=== PATIENT | female | born 1985 | race Caucasian/White ===

== ENCOUNTER 2025-01-20 08:30 | Outpatient (CLI) | payer MEDICAID, SELFPAY ==
[2025-01-20 16:20] LABS: Chlamydia DNA Amplified* NOT DETECTED (No Detected); GC DNA Amplified* NOT DETECTED (No Detected)
[2025-01-21 22:38] LABS: HPV Source Vaginal; HPV, High Risk by TMA Not Detected
== END 2025-01-20 08:31 | disposition home or self-care (01) ==
PROVIDERS: PCP Physician Assistant Medical; Visit Provider Physician Assistant Medical
DX: R10.2 Pelvic and perineal pain (principal); N92.0 Excessive and frequent menstruation with regular cycle; Z13.0 Encounter for screening for diseases of the blood and blood-forming organs and certain disorders involving the immune mechanism; Z13.6 Encounter for screening for cardiovascular disorders; Z11.3 Encounter for screening for infections with a predominantly sexual mode of transmission; Z13.1 Encounter for screening for diabetes mellitus
CPT/HCPCS: 80048; 80061; 84443; 86703; 86803; 87491; 87591; 87624; 87625; 88141; 88142

== ENCOUNTER 2025-02-07 14:42 | Outpatient (CLI) | payer MEDICAID, SELFPAY | END 2025-02-07 14:43 | disposition home or self-care (01) | PROVIDERS: PCP Physician Assistant Medical; Visit Provider Physician Assistant Medical | DX: R10.2 Pelvic and perineal pain (principal); D25.1 Intramural leiomyoma of uterus; R93.89 Abnormal findings on diagnostic imaging of other specified body structures; N83.201 Unspecified ovarian cyst, right side; N92.0 Excessive and frequent menstruation with regular cycle | CPT/HCPCS: 76830; 76856; 93976 ==

== ENCOUNTER 2025-02-16 10:50 | Outpatient (CLI) | payer MEDICAID, SELFPAY | END 2025-02-16 10:51 | disposition home or self-care (01) | LOC: NFLDREF 10:52 | PROVIDERS: PCP Physician Assistant Medical; Visit Provider Obstetrics & Gynecology | DX: N92.0 Excessive and frequent menstruation with regular cycle (principal) | CPT/HCPCS: 84443 ==

== ENCOUNTER 2025-03-24 13:45 | Outpatient (CLI) | payer MEDICAID, SELFPAY ==
--- NOTE | 2025-03-24 14:00 | CRLHL7_ITS ---
For Patients: As a result of the Century Cures Act, medical imaging exams and procedure reports are released immediately into your electronic medical record. You may view this report before your referring provider. If you have questions, please contact your health care provider. INDICATION: History of other diseases of female COMPARISON: 02/07/2025 TECHNIQUE: 2D hernandez scale and color Doppler images were acquired of the pelvis using a transabdominal and transvaginal approach. FINDINGS: Sonographic images demonstrate a normal size and smooth outer contour of the uterus. Uterus measures 9.4 cm in length by 4.7 cm in AP diameter by 5.4 cm in transverse dimension. Fundal fibroid is present which measures 1.5 x 1.4 x 1.6 cm, previously measuring 1.5 x 1.8 x 1.5 cm. This abuts the fundal endometrial stripe. Additional posterior intramural fibroid measures 1.8 x 0.9 x 1.5 cm. The endometrial lining appears normal and measures 7 mm in composite thickness. The right ovary measures 3.3 x 1.6 x 1.9 cm in size and the left ovary measures 3.7 x 2.1 x 2.9 cm. The ovaries demonstrate normal arterial and venous blood flow on color Doppler analysis. There are no suspicious fluid collections within the cul-de-sac. IMPRESSION: Similar fundal fibroid adjacent to the fundal endometrial stripe which measures 1.6 cm. Posterior intramural fibroid measures 1.8 cm. Endometrium measures 7 millimeters. No suspicious ovarian lesion. Dictated by Claudio Poole MD @ 03/24/2025 4:08:04 PM (Electronically Signed)
== END 2025-03-24 13:46 | disposition home or self-care (01) ==
LOC: US 13:46
PROVIDERS: PCP Physician Assistant Medical; Visit Provider Obstetrics & Gynecology
DX: Z87.42 Personal history of other diseases of the female genital tract (principal); D25.1 Intramural leiomyoma of uterus; R93.89 Abnormal findings on diagnostic imaging of other specified body structures
CPT/HCPCS: 76830; 76856

== ENCOUNTER 2025-03-30 08:32 | Day surgery (SDC) | payer MEDICAID, SELFPAY ==
[2025-03-30] VITALS (23 sets, daily range): BP systolic 99–127; BP diastolic 50–83; PULSE 52–98; RESP 14–20; TEMP 35.6–37.1; O2SAT 96–100; BMI 22.6
[2025-03-30] MEDS: SODIUM CHLORIDE 0.9 % (FLUSH) 10 ML SYRINGE IVF ×2 (09:30→19:37)
[2025-03-30] MEDS: LACTATED RINGERS 1000 ML 1,000 ML 100 ML IV ×2 (09:30→11:48)
[2025-03-30 09:37] LABS: Hemoglobin* 12.8 gm/dL (12.0-16.0)
[2025-03-30 09:40] LABS: Ur HCG Qualitative* Negative (Negative)
[2025-03-30 09:51] LABS: Creatinine* 0.6 mg/dL (0.5-1.5); Estimated Glomerular Filt Rate 118 ml/min
--- NOTE | 2025-03-30 10:05 | W.PM.H&PU ---
History & Physical Update History & Physical Update H&P Reviewed and patient assessed: No changes noted
[2025-03-30] MEDS: ACETAMINOPHEN 500 MG TABLET 1000 MG PO ×2 (10:10→15:49)
[2025-03-30] MEDS: GABAPENTIN 600 MG TABLET PO (10:10)
[2025-03-30] MEDS: SCOPOLAMINE 1 MG/3 DAY PATCH 1 PATCH TRANSDERMA (10:10)
[2025-03-30] MEDS: CEFAZOLIN 2 GM INJ IVP (10:46)
--- NOTE | 2025-03-30 12:34 | W.PM.GYNPROC ---
Procedure Note Date of procedure: 03/30/25 Will [facility] bill your pro fee for this procedure?: Yes Pre-op diagnosis: Abnormal uterine bleeding- leiomyoma, possible adenomyosis, chronic pelvic pain Post-op diagnosis: Same Procedure: Total laparoscopic hysterectomy, bilateral salpingectomy, cystoscopy Anesthesia: GETA Complications: None Surgeon: Raymundo Dwyer MD Animal Therapist: Leticia Porras Estimated blood loss (mL): 50 IV fluids (mL): 1,500 Urine Output (mL): 600 Pathology: specimen obtained, sent to pathology (Uterus and cervix, bilateral fallopian tubes) Condition: stable Disposition: floor Findings: Normal external genitalia, speculum exam: large cervix w/o gross lesions or abnormal discharge. Intra abdominal: Grossly normal liver, stomach, intestines. Pelvis: Uterus midline of about 10cm, posterior subserosal fibroids small- of about 1-2 cm. Grossly normal bilateral fallopian tubes and ovaries. No evidence of pelvic adhesions, grossly noticeable endometriosis implants. Cystoscopy: air bubbles noted, mucosa intact w/o foreign material-suture or lesions. Bilateral ureteral jets noted. Procedure Description: DESCRIPTION OF PROCEDURE: After obtaining informed consent, the patient was taken to the operating room where general anesthesia was obtained without difficulty. She was prepared and draped in the normal sterile fashion in the low dorsal lithotomy position. A Garcia catheter was inserted into the bladder and left to drain by gravity. A medium Graves open-sided speculum was introduced into the vagina. The cervix was visualized and grasped along its anterior lip with a single-tooth tenaculum. The uterus was gently sounded. Sound length was found to be 9 cm. Cervical dilation completed with Hegar dilators. I then placed an extra large VCare uterine manipulator. The tenaculum and speculum were removed. The green VCare cup was digitally pressed up against the cervix and then cinched in place with the blue accessory cup. I then changed gloves and my attention was turned to the abdomen. The inferior aspect of the umbilical fold was grasped with 2 Allis clamps. A 5 mm vertical incision was then made within the umbilical fold using a scalpel. A direct entry technique was used, a 5 mm laparoscopic port with CO2 gas set at 5mmHg was introduced under direct visualization. The trocar was removed leaving the sleeve in place. The CO2 gas flow was turned to high flow to achieve pneumoperitoneum. The 5 mm laparoscope was used then to carefully inspect the abdomen and pelvis with findings noted above. Pictures were taken for documentation purposes. The patient was placed in Trendelenburg positioning. Two additional 5mm ports were placed in the right and left lower quadrants under direct visualization. An additional 5mm port was placed on the abdomen at the level of the umbilicus to the left of umbilicus, about 5-6 cm lateral from umbilicus under direct visualization. Once the ports were in place, the VCare manipulator was used to elevate the uterus. The VCare cup was visualized and palpated with a blunt grasper. The left tube was elevated with a graspers. The LigaSure device was used to dissect the tube from it's ovarian and broad ligament and cornual attachments before removing the tube through a lower port. Excellent hemostasis was obtained. The left utero-ovarian ligament was then sealed and transected in a wide swath with the LigaSure device. Hemostasis secured. The left round ligament was then sealed in a wide swath and transected with the LigaSure, excellent hemostasis was obtained. The broad ligament was then opened using the LigaSure anteriorly and posteriorly along the cervix from the left within the confines of the VCare cup. Pressure was maintained on the uterine manipulator the whole time. The left uterine vessels were sealed in a wide swath and transected with the LigaSure, then the tissues over the VCare cup edge on the left side were thinned using the LigaSure to the midline posteriorly and anteriorly so that the fascial layer could be identified. The right tube was elevated with a graspers. The LigaSure device was used to dissect the tube from it's ovarian and broad ligament and cornual attachments before removing the tube through a lower port. Excellent hemostasis was obtained. The right utero-ovarian ligament sealed and transected in a wide swath with the LigaSure device. Hemostasis secured. The right round ligament was then sealed in a wide swath and transected with the LigaSure, excellent hemostasis was obtained. The broad ligament was then opened using the LigaSure anteriorly and posteriorly along the cervix from the right within the confines of the VCare cup. Pressure was maintained on the uterine manipulator the whole time. The right uterine vessels were sealed in a wide swath and transected with the LigaSure, then the tissues over the VCare cup edge on the right side were thinned using the LigaSure to the midline posteriorly and anteriorly so that the fascial layer could be identified. Once an adequate dissection was made circumferentially, monopolar laparoscopic spatula was utilized to dissect until identification of the green Vcare cup, tissue dissected circumferentially around the cervix within the groove of the VCare cup. Once the dissection was completed circumferentially, from the vagina the uterine manipulator and the uterus were removed. Uterus was left in vagina to aid in maintenance of pneumoperitoneum. The vaginal cuff was reapproximated in a running fashion with a V-Loc suture starting from the right side and running across to the left and then back to the midline where the suture was cut flush with the tissues. The pelvis was copiously irrigated and hemostasis visualized. Preparations were then made for cystoscopy. Fluorescein was administered intravenously along with the IV fluids. The Garcia catheter was removed. The patient was flattened out. Cystoscopy was performed using sterile normal saline as distending medium. The bladder was carefully inspected and noted to be free of filling defects or suture material. Both ureteral orifices were easily visualized and fluorescein tinged urine jets were noted from both sides. The cystoscope was then removed. The Garcia catheter was replaced into the bladder. Speculum evaluation of the vaginal cuff was completed at this moment, showing adequate closure and no evidence of bleeding of escape of pneumoperitoneum. Attention was once again turned to the abdomen. The abdomen and pelvis were again irrigated and inspected for hemostasis. Andres was placed over excision sites to further secure hemostasis. All instruments were then removed under direct visualization. Pneumoperitoneum was allowed to escape. The skin at all port sites was closed in a subcuticular fashion with 4-0 Monocryl. LiquiBand was then placed over the incisions. The patient tolerated the procedure well. Sponge, lap, needle, and instrument counts were reported as correct x2. The patient was taken to the recovery room awake and in stable condition. She did receive Ancef 2g preoperatively as infection prophylaxis. PATHOLOGY SPECIMEN(S): Uterus, cervix and bilateral fallopian tubes. Uterine weight: 146g.
--- NOTE | 2025-03-30 12:55 | P.NB_ITS ---
Nerve Block Nerve Block Time Seen by Provider: 10:35 Date Seen: 03/30/25 Type of block requested by surgeon for post-operative analgesia: TAP Time out performed: Yes Verification of patient name: Yes Verification of date of : Yes Site marking: site marked Name of person performing procedure: Aaron Continuous monitoring Was continuous monitoring of O2 sat, B/P, monitoring analyst, recorded every 15 minutes?: Yes Procedure Checklist: sterile prep, needles and gloves Ultrasound guided. Images saved: Yes Medications given in 5ml increments after negative aspiration: Marcaine %: 0.25 mL: 30 Needle gauge: 20 and Exparel mL: 10 Patient tolerated procedure well: Yes Additional comments: Needle noted between internal oblique and transversus abdominus. Local spread visualized Block Charges Block Charge (with Pro Fee): TAP Bilateral Use of Ultrasound Machine for Block: Yes- US Guidance/pain block
--- NOTE | 2025-03-30 12:55 | P.ANES_ITS ---
Anesthesia Charges Start Date/Time Anesthesia Start Date: 03/30/25 Anesthesia Start Time: 10:36 Stop Date/Time Anesthesia Stop Date: 03/30/25 Anesthesia Stop Time: 12:45 Coding CPT Codes CPT Codes: ANESTH SURG LOWER ABDOMEN - 34650 ([id number]) P2 - PATIENT W/MILD SYST DISEASE, QK - MEDICAL SPECIALIST 2-4 CNCRNT ANES PROC, QX - CHIEF DESIGN DRAFTER SVC W/ MD MED DIRECTION
--- NOTE | 2025-03-30 12:55 | W.ANESCHARGE ---
Anesthesia Charges Start Date/Time Anesthesia Start Date: 03/30/25 Anesthesia Start Time: 10:36 Stop Date/Time Anesthesia Stop Date: 03/30/25 Anesthesia Stop Time: 12:45 Coding CPT Codes CPT Codes: ANESTH SURG LOWER ABDOMEN - 84769 ([id number]) P2 - PATIENT W/MILD SYST DISEASE, QK - UNDERWRITING SALES REPRESENTATIVE 2-4 CNCRNT ANES PROC, QX - PROFESSOR IN FAMILY STUDIES SVC W/ MD MED DIRECTION
[2025-03-30] MEDS: fentaNYL 100 MCG/2 ML inj 50 MCG IVP (13:00)
[2025-03-30] MEDS: HYDROmorphone 0.5 mg/0.5 ml inj IVP (13:08)
[2025-03-30] MEDS: OXYCODONE 5 MG TABLET PO ×2 (13:41→17:50)
[2025-03-30] MEDS: KETOROLAC 30 MG/ML inj IVP (19:37)
[2025-03-30] MEDS: SIMETHICONE 80 MG TAB.CHEW 160 MG PO (19:38)
[2025-03-31] MEDS: KETOROLAC 30 MG/ML inj IVP (01:25)
[2025-03-31 03:34] VITALS: BP 96/60; PULSE 67; RESP 16; TEMP 36.9; O2SAT 97
[2025-03-31 06:46] LABS: Hemoglobin* 10.5 gm/dL (12.0-16.0)
--- NOTE | 2025-03-31 06:48 | PC.NURSE ---
Catheter was removed at 2300 on 03/30. Pt was able to get out of bed and walk in the [place] with only reports of feeling like she had a few drinks. She has since been able to get out of bed and move around room independently. She said she attempted to void but was only able to pee a few drops and reported it burned. Bladder scan done and results were from 71-92 mls. Will update MD for further orders.
[2025-03-31 06:59] LABS: Creatinine* 0.7 mg/dL (0.5-1.5); Est. Creatinine Clearance* 98.05; Estimated Glomerular Filt Rate 113 ml/min
[2025-03-31] MEDS: IBUPROFEN 600 MG TABLET PO ×2 (07:16→13:39)
[2025-03-31] MEDS: SENNOSIDES/DOCUSATE TABLET 1 TAB PO (08:28)
[2025-03-31] MEDS: polyethylene glycoL 3350 17 GM PACK PO (08:28)
[2025-03-31 08:34] VITALS: BP 103/67; PULSE 63; RESP 16; TEMP 36.9; O2SAT 98
--- NOTE | 2025-03-31 13:48 | P.DS_ITS ---
DS: Providers Provider Time Seen by Provider: 13:48 Date Seen: 03/31/25 Primary care physician: Concha Daily PA-C Attending Physician on discharge: Kristen Dwyer MD Date of Discharge: 03/31/25 DS: Diagnosis Discharge Diagnosis (1) History of ovarian cyst: Status: Acute (2) History of depression: Status: Acute (3) History of anxiety: Status: Acute (4) Chronic constipation: Status: Acute Problem details: Previously consulted with GI (5) Pelvic pain: Status: Acute (6) Menorrhagia: Status: Acute (7) S/P hysterectomy: Status: Acute Problem details: TLH + BS on 03/30/25 CERTIFIED CAREGIVER-Discharge Summary Hospital Course Hospital Course Narrative: Patient is a 39 year old admitted on 03/30/25 for schedule surgery. Total laparoscopic hysterectomy, bilateral salpingectomy, cystoscopy Indication for surgery: Abnormal uterine bleeding- leiomyoma, possible adenomyosis, chronic pelvic pain Intraoperative findings: Normal external genitalia, speculum exam: large cervix w/o gross lesions or abnormal discharge. Intra abdominal: Grossly normal liver, stomach, intestines. Pelvis: Uterus midline of about 10cm, posterior subserosal fibroids small- of about 1-2 cm. Grossly normal bilateral fallopian tubes and ovaries. No evidence of pelvic adhesions, grossly noticeable endometriosis implants. Cystoscopy: air bubbles noted, mucosa intact w/o foreign material-suture or lesions. Bilateral ureteral jets noted. She had an uncomplicated surgery. Postoperative course has been uneventful. Vitals have been stable. She has remained afebrile. Today, on postoperative day 1, she reports the pain is well controlled. She has been able to ambulate Without difficulty. She is tolerating regular diet. She is passing flatus. Garcia catheter has been removed, and she is voiding without difficulty. Notably, she has chronic constipation. This has been extensively worked up by GI. However, no cause has been elucidated. Has last BM was Friday. She's has a BM every 3-4 days. Given that she is passing gas, ok to discharge. However, we reviewed bowel regimen extensively, especially since oxycodone can be constipating. She has miralax and docusate, and senna at home. Reviewed importance of bowel movement. I can cause abdominal pain and worsen postoperative pain. Patient knows to call the clinic if she has any concern. Time Spent with Patient Time attestation: Total time spent providing and/or coordinating discharge services: Time spent: Less than 30 minutes CERTIFIED CAREGIVER - Exam Physical Exam: Vital signs: Temp Pulse Resp BP Pulse Ox O2 Del Method O2 Flow Rate 98.5 F 63 16 103/67 98 Room Air 2 03/31/25 08:34 03/31/25 08:34 03/31/25 08:34 03/31/25 08:34 03/31/25 08:34 03/31/25 03:34 03/30/25 12:45 FiO2 100 03/30/25 12:45 Narrative: Physical exam: General: No acute distress Psych: Alert and oriented x4, full affect HEENT: Normocephalic, atraumatic Heart: Regular rate and rhythm, no murmur rub or gallop Lungs: Clear to auscultation bilaterally Abdomen: Normoactive bowel sounds, soft, no tenderness, rebound, or guarding Incision(s): Appropriately tender to palpation. Clean, dry, and intact. No erythema, induration, or abnormal discharge/breakdown Skin: No lesions or rashes Lower extremities: No edema or erythema Pelvic exam: Scant bleeding on pad CERTIFIED CAREGIVER - DS: Data Data Completed and Pending Labs on day of discharge: Labs from last 24 hours 03/31/25 06:10 Hgb 10.5 L Creatinine 0.7 Estimated Creat Clear 98.05 Estimated GFR 113 Procedures Procedures: Procedures Operation Date: 03/30/25 11:15 Actual Procedure Side Surgeon p Total Laparoscopic Hysterectomy, Bilateral Salpingectomy, Cystoscopy Kristen Dwyer MD Discharge Plan Discharge Disposition: Home w/ Parent or Adult Discharging Surgeon: Kristen Dwyer Follow-Up Appointment: 2 weeks at [facility] Prescriptions: New acetaminophen 500 mg Tablet 1,000 mg PO Q6H PRNQty: 30 0RF ibuprofen 600 mg Tablet 600 mg PO Q6H Qty: 30 0RF oxycodone 5 mg Tablet 5 mg PO Q4H PRN (Reason: Moderate Pain) Qty: 15 0RF Continued Zyrtec 10 mg capsule 10 mg PO QDAY PRN Activity Level: Activity as Tolerated and No Weight Bearing Activity Detail: No lifting more than 20 pounds and nothing vaginally for 6 weeks Discharge Diet: Regular Patient Instructions: Laparoscopic Hysterectomy (DC) Additional Instructions: [facility] Follow-up: Concha Daily PA-C [Primary Care Provider] - Discharge Orders: Discharge Order (Routine); Ordered 03/31/25 Ordered By: Leticia Porras
[2025-03-31] MEDS: ACETAMINOPHEN 500 MG TABLET 1000 MG PO (15:09)
== END 2025-03-31 15:21 | disposition home or self-care (01) ==
LOC: OR 08:35 → OB 08:36
PROVIDERS: PCP Physician Assistant Medical; Visit Provider Obstetrics & Gynecology
PROC: 0UT94ZZ Resection of Uterus, Percutaneous Endoscopic Approach (ICD-10-PCS; CPT 58571; principal; 2025-03-30 11:15)
DX: N92.0 Excessive and frequent menstruation with regular cycle (principal); D25.2 Subserosal leiomyoma of uterus; N93.8 Other specified abnormal uterine and vaginal bleeding; G89.18 Other acute postprocedural pain; R10.2 Pelvic and perineal pain; G89.29 Other chronic pain; K59.09 Other constipation; Z86.59 Personal history of other mental and behavioral disorders; Z87.42 Personal history of other diseases of the female genital tract
CPT/HCPCS: 58571; 00840; 36415; 64488; 76942; 81025; 82565; 85018; 88307; A4314; A9270; J0330; J0665; J0666; J0690; J1100; J1171; J1885; J2250; J2405; J2704; J2710; J3010; J3475; J3490; J7120

== ENCOUNTER 2025-04-13 13:59 | Outpatient (CLI) | payer MEDICAID, SELFPAY | END 2025-04-13 14:00 | disposition home or self-care (01) | LOC: NFLDREF 04-15 16:02 | PROVIDERS: PCP Physician Assistant Medical; Referring Provider Physician Assistant Medical; Visit Provider Obstetrics & Gynecology | DX: R35.0 Frequency of micturition (principal) | CPT/HCPCS: 87086 ==